=== PATIENT | female | born 1960 | race Asian ===

== ENCOUNTER → 2017-05-10 | Outpatient (CLI) | payer OTHER | LOC: FIMAGING 07:38 | PROVIDERS: ATTEND Internal Medicine | DX: Z13.820 Encounter for screening for osteoporosis (principal); M85.89 Other specified disorders of bone density and structure, multiple sites ==

== ENCOUNTER → 2017-06-23 | Outpatient (CLI) | payer OTHER | LOC: FIMAGING 08:21 | PROVIDERS: ATTEND Internal Medicine | DX: R92.8 Other abnormal and inconclusive findings on diagnostic imaging of breast (principal) ==

== ENCOUNTER → 2017-07-21 | Outpatient (CLI) | payer OTHER | LOC: FIMAGING 09:54 | PROVIDERS: ATTEND Internal Medicine | DX: K76.0 Fatty (change of) liver, not elsewhere classified (principal); B18.1 Chronic viral hepatitis B without delta-agent; Z90.49 Acquired absence of other specified parts of digestive tract ==

== ENCOUNTER → 2017-08-27 | Outpatient (CLI) | payer OTHER | LOC: FIMAGING 08:07 | PROVIDERS: ATTEND Internal Medicine | DX: E04.1 Nontoxic single thyroid nodule (principal) ==